=== PATIENT | female | born 1955 | race Caucasian/White ===

== ENCOUNTER 2020-12-06 11:00 | Emergency (ER) | payer BC ==
[~2020-12-06] VITALS: Ht 162.6 cm; Wt 68.0 kg
[2020-12-06 11:06] VITALS: BP 149/93
--- NOTE | 2020-12-06 11:14 | NUR ---
Patient wheelchair assisted to bed 01 accompanied by family.
--- NOTE | 2020-12-06 11:35 | NUR ---
65 y/o F BIB family from home with c/c fall x 10am. Patient A&Ox4, wheelchair assisted, states she slipped on water outside of a business and landed on her left foot. States pain to left foot and left buttocks; reports 4/10, "tired/intermittent," non-radiating pain. Pt denies any medications prior to arrrival. Left foot +pedal pulses +CMS +ROM -LOC -head/neck/back pain -redness/swelling noted. VSS; respirations even/unlabored. Bed locked in lowest position, side rails x1. PMH/Sx/Meds: Denies NKA
[2020-12-06 11:55] VITALS: BP 144/87
--- NOTE | 2020-12-06 11:55 | NUR ---
Patient discharged with v/s stable. Written and verbal after care instructions given and explained. Patient verbalized understanding. Ambulatory with steady gait. All questions addressed prior to discharge. Advised to follow up with PMD.
== END 2020-12-06 11:55 | disposition home or self-care (01) ==
LOC: MED 11:00
DX: M79.605 Pain in left leg (principal); W19.XXXA Unspecified fall, initial encounter; Y93.89 Activity, other specified; Y92.89 Other specified places as the place of occurrence of the external cause; Y99.8 Other external cause status
CPT/HCPCS: 99281